=== PATIENT | female | born 1980 | race Caucasian/White ===

== ENCOUNTER 2023-03-26 17:12 | Observation (INO) | payer SELFPAY ==
[2023-03-26] VITALS (8 sets, daily range): BP systolic 120–146; BP diastolic 76–103
[~2023-03-26] VITALS: Ht 152.4 cm; Wt 90.0 kg
[2023-03-26 17:34] LABS: BASO% 0.6 % (0-3); EOS% 3.4 % (0-8); HEMATOCRIT 36.1 % (37.0-47.0); HEMOGLOBIN 10.9 g/dl (12.0-16.0); IMMATURE GRANULOCYTES 0.1 % (0.0-5.0); MEAN CELL VOLUME 74.1 fL CALC (80.0-100.0); MEAN CORPUSCULAR HGB 22.4 pG CALC (26.0-32.0); MEAN CORPUSCULAR HGB CONC 30.2 g/dL CAL (32.0-36.0); MONO% 8.6 % (2-13); NEUT# 5.29 thou/uL (2.00-7.15); NEUT% 59.3 % (42-76); RED BLOOD COUNT 4.87 mill/uL (4.20-5.60); RED CELL DISTRI WIDTH 16.1 % (11.5-15.5)
[2023-03-26 17:44] LABS: ALBUMIN 4.5 g/dL (3.2-5.0); ALKALINE PHOSPHATASE 83 u/l (38-126); ANION GAP 14 (6-22 (CALC)); BILIRUBIN, TOTAL 0.2 mg/dL (0.02-1.3); BUN 14 mg/dL (7-17); BUN/CREATININE RATIO 30 (12-20 (CALC)); CARBON DIOXIDE 23 mmol/l (22-30); CHLORIDE 102 mmol/l (95-108); CREATININE 0.5 mg/dL (0.5-1.0); GFR FOR AFR.AMER. > 60 ML/MIN (>=60 (CALC)); GFR OTHER RACES > 60 ML/MIN (>=60 (CALC)); LIPASE 77 u/l (23-300); POTASSIUM 4.1 mmol/l (3.5-5.1); SGOT/AST 25 u/l (14-36); SODIUM 135 mmol/l (137-146); TOTAL PROTEIN 7.5 g/dL (6.3-8.2)
[2023-03-27 00:10] VITALS: BP 139/87
[2023-03-27 04:07] VITALS: BP 133/86
[2023-03-27 05:53] LABS: BASO% 0.7 % (0-3); EOS% 6.7 % (0-8); HEMATOCRIT 32.5 % (37.0-47.0); HEMOGLOBIN 9.8 g/dl (12.0-16.0); IMMATURE GRANULOCYTES 0.2 % (0.0-5.0); LYMPH% 40.9 % (15-41); MEAN CELL VOLUME 75.4 fL CALC (80.0-100.0); MEAN CORPUSCULAR HGB 22.7 pG CALC (26.0-32.0); MEAN CORPUSCULAR HGB CONC 30.2 g/dL CAL (32.0-36.0); MONO% 12.2 % (2-13); NEUT# 2.29 thou/uL (2.00-7.15); NEUT% 39.3 % (42-76); RED BLOOD COUNT 4.31 mill/uL (4.20-5.60)
[2023-03-27 06:34] LABS: ALKALINE PHOSPHATASE 65 u/l (38-126); ANION GAP 8 (6-22 (CALC)); BUN 10 mg/dL (7-17); BUN/CREATININE RATIO 28 (12-20 (CALC)); CALCULATED LDLCHOLESTEROL 126 mg/dL (62-129 (CALC)); CARBON DIOXIDE 26 mmol/l (22-30); CHLORIDE 106 mmol/l (95-108); CHOLESTEROL HDL RATIO 4.5 (<4.4 (CALC)); CREATININE 0.4 mg/dL (0.5-1.0); GFR FOR AFR.AMER. > 60 ML/MIN (>=60 (CALC)); GFR OTHER RACES > 60 ML/MIN (>=60 (CALC)); HDL CHOLESTEROL 45 mg/dL (39.0-59.0); POTASSIUM 4.2 mmol/l (3.5-5.1); SGOT/AST 19 u/l (14-36); SODIUM 136 mmol/l (137-146); TOTAL CHOLESTEROL 204 mg/dl (0-199); TOTAL PROTEIN 6.1 g/dL (6.3-8.2); TOTAL TRIGLYCERIDES 164 mg/dl (0-149); VLDL CHOLESTROL 33 mg/dl (1-41 (CALC))
[2023-03-27 06:39] LABS: ALBUMIN 3.5 g/dL (3.2-5.0); BILIRUBIN, TOTAL 0.3 mg/dL (0.02-1.3)
[2023-03-27 07:17] VITALS: BP 126/83
[2023-03-27 08:00] VITALS: BP 126/83
[2023-03-27 11:04] VITALS: BP 142/88
[2023-03-27 12:16] VITALS: BP 142/88
[2023-03-27] MEDS ORDERED: METFORMIN HYDR500 MG PO (12:18)
[2023-03-27] MEDS ORDERED: GLIPIZIDE5 M2 PO (12:19)
[2023-03-27] MEDS ORDERED: CELEXA10 MG PO (12:20)
== END 2023-03-27 13:20 | disposition home or self-care (01) | DRG 313 ==
LOC: ED 17:12 → ED-I 18:40 → ED 19:08 → MS2 19:09
PROVIDERS: Nurse Practitioner; ADMIT Internal Medicine; ATTEND Internal Medicine
DX: R07.89 Other chest pain (principal); E11.65 Type 2 diabetes mellitus with hyperglycemia; F41.8 Other specified anxiety disorders; T38.3X6A Underdosing of insulin and oral hypoglycemic [antidiabetic] drugs, initial encounter; Z91.120 Patient's intentional underdosing of medication regimen due to financial hardship; Z73.3 Stress, not elsewhere classified; Z59.89 Other problems related to housing and economic circumstances
CPT/HCPCS: G0378

== ENCOUNTER 2024-01-05 18:00 | Emergency (ER) | payer SELFPAY ==
[~2024-01-05] VITALS: Ht 152.4 cm; Wt 93.0 kg
[~2024-01-05 18:00] MED LIST: CELEXA10 MG PO; GLIPIZIDE5 M2 PO; METFORMIN HYDR500 MG PO
[2024-01-05 18:07] VITALS: BP 150/99
[2024-01-05 19:05] LABS: URINE BILIRUBIN - DIPSTICK Negative (NEGATIVE); URINE BLOOD DIPSTICK Large (NEGATIVE); URINE COLOR Yellow; URINE GLUCOSE - DIPSTICK >=1000 mg/dL (NEGATIVE); URINE KETONE Trace mg/dL (NEGATIVE); URINE LEUK ESTERASE Negative (NEGATIVE); URINE NITRITE - DIPSTICK Positive (Negative); URINE PH 8.5 (4.5-8.0); URINE PROTEIN - DIPSTICK 100 mg/dL (NEG-TRACE); URINE SPECIFIC GRAVITY 1.015
[2024-01-05 19:06] LABS: URINE BACTERIA FEW hpf; URINE SQUAMOUS EPITHELIAL CELL MANY EPI/hpf (0-FEW)
[2024-01-05] MEDS ORDERED: LIDOcaine HCl 1% (Local Anesth.) 20 ML VIAL IM STA (19:18)
[2024-01-05] MEDS ORDERED: cefTRIAXone SODIUM 1 GM/VIAL SDV IM ONE (19:20)
[2024-01-05] MEDS ORDERED: KEFLEX500 MG PO (19:21)
[2024-01-05] MEDS ORDERED: METFORMIN500 M2 PO (19:25)
[2024-01-05] MEDS ORDERED: GLIPIZIDE5 M2 PO (19:25)
[2024-01-05 19:52] VITALS: BP 150/99
== END 2024-01-05 19:52 | disposition home or self-care (01) | DRG 690 ==
LOC: ED 18:00
PROVIDERS: Nurse Practitioner
DX: N39.0 Urinary tract infection, site not specified (principal); B96.20 Unspecified Escherichia coli [E. coli] as the cause of diseases classified elsewhere; E11.9 Type 2 diabetes mellitus without complications; Z79.84 Long term (current) use of oral hypoglycemic drugs